=== PATIENT | male | born 1985 ===

== ENCOUNTER 2018-07-28 17:07 | Emergency (ER) | payer BC, OTHER ==
[2018-07-28] MEDS ORDERED: fentaNYL 250 MCG/5 ML SDV ONE (17:08)
[2018-07-28] MEDS ORDERED: Etomidate 2 MG/ML 20 ML SDV IVPUSH ONE ×2 (17:08→19:16)
[2018-07-28] MEDS ORDERED: Sodium Chloride 0.9% 2.5 ML Syringe FLUSH PRN (17:09)
[2018-07-28] MEDS ORDERED: Lidocaine 1% 50 ML MDV ONE (17:09)
[2018-07-28] MEDS ORDERED: Sodium Chloride 0.9% 10 ML Syringe FLUSH PRN (17:09)
[2018-07-28] MEDS ORDERED: Sodium Chloride 0.9% 1,000 ML IV ONE (17:10)
[2018-07-28] MEDS ORDERED: Lidocaine 1% 50 ML MDV INJECT SCH (17:30)
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
[2018-07-28] MEDS ORDERED: Propofol 1,000 MG/100 ML SDV IV ONE (17:41)
[2018-07-28] MEDS ORDERED: ceFAZolin 1 GM in Premix Bag 1 BAG IV ONE (17:44)
[2018-07-28] MEDS ORDERED: Diphtheria,Pertussis(Acell),Tetanus Vaccine 0.5 ML Syringe IM ONE (17:44)
[2018-07-28] MEDS ORDERED: Diphtheria/Tetanus Toxoids,Adult (Td) 0.5 ML Syringe ONE (17:45)
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
[2018-07-28 18:08] LABS: CHLORIDE,CL 107 mmol/L (98-107); SODIUM,NA 143 mmol/L (136-148)
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
[2018-07-28] MEDS ORDERED: Lidocaine 2% 5 ML SDV INJECT ONE (19:12)
[2018-07-28] MEDS ORDERED: Rocuronium 50 MG/5 ML Vial IVPUSH ONE (19:12)
== END 2018-07-28 18:00 ==
LOC: MW.ED 17:07
DX: S01.01XA Laceration without foreign body of scalp, initial encounter (principal); R06.00 Dyspnea, unspecified; R41.82 Altered mental status, unspecified; Z23 Encounter for immunization; T14.8XXA Other injury of unspecified body region, initial encounter; V89.2XXA Person injured in unspecified motor-vehicle accident, traffic, initial encounter
CPT/HCPCS: 31500; 36415; 71045; 72170; 80053; 80305; 81001; 85025; 85610; 86850; 86900; 86901; 90471; 90714; 96365; 96374; 96375; 96376; 99291; A4217; G0390; J0330; J0690; J2001; J2704; J3010; J3490